=== PATIENT | male | born 1980 | race Caucasian/White ===

== ENCOUNTER → 2019-01-01 | Outpatient (CLI) | payer OTHER ==
--- NOTE | 2019-01-01 16:22 | XR ---
Right shoulder HISTORY: Chronic shoulder pain, remote trauma 3 views of the right shoulder Bone mineralization, joint spaces and alignment are maintained. Right lung apex as visualized is unre markable. Distal acromion slightly downturned. IMPRESSION: No fracture or dislocation. Shoulder MRI may be of benefit.
== END | disposition home or self-care (01) ==
LOC: RADXRMAIN 14:32
PROVIDERS: ATTEND Physician Assistant
DX: M25.511 Pain in right shoulder (principal)

== ENCOUNTER 2019-01-14 14:42 | Emergency (ER) | payer OTHER ==
[2019-01-14 14:52] VITALS: BP 107/66; PULSE 96; RESP 16; TEMP 98.4
[2019-01-14] MEDS ORDERED: LIDOCAINE 1%-EPI 1:100,000 20 ML VIAL SQ STA (15:02)
[2019-01-14] MEDS ORDERED: CLINDAMYCIN 150 MG CAP PO STA (15:03)
--- NOTE | 2019-01-14 15:19 | ED ---
General Adult HPI - General Chief complaint: Dental/Oral Stated complaint: Dental pain Time Seen by Provider: 01/14/19 15:00 Source: patient Mode of arrival: ambulatory Limitations: no limitations - History of Present Illness Initial comments: Dictation was produced using [employer] dictation software. please excuse any grammatical, word or spelling errors. Chief Complaint: 38yo male with no significant past medical history presents with dental pain. History of Present Illness: Patient is a 38-year-old male with chief complaint of dental pain. Patient has been having right mandibular dental pain for approximately 2-3 days. He has been without insurance however recently he was approved for insurance and will schedule dental appointment. Patient states he was not able to make it today. He had to leave work to come to the emergency department for this. Denies any constitutional symptoms. He does report some swelling around the right lower face. The ROS documented in this emergency department record has been reviewed and confirmed by me. Those systems with pertinent positive or negative responses have been documented in the HPI. All other systems are other negative and/or noncontributory. PHYSICAL EXAM: General Impression: Alert and oriented x3, not in acute distress HEENT: Normocephalic atraumatic, extra-ocular movements intact, pupils equal and reactive to light bilaterally, mucous membranes moist. Oral exam: Her dentition, gingival abscess to the right lower mandibular teeth adjacent to the molars. Cardiovascular: Heart regular rate and rhythm, S1&S2 audible, no murmurs, rubs or gallops Chest: Lungs clear to auscultation bilaterally, no rhonchi, no wheeze, no rales Abdomen: Bowel sounds present, abdomen soft, non-tender, non-distended, no organomegaly Musculoskeletal: Pulses present and equal in all extremities, no peripheral edema Motor: no focal deficits noted Neurological: CN II-XII grossly intact, no focal motor or sensory deficits noted Skin: Intact with no visualized rashes Psych: Normal affect and mood ED course: 38yo male presents with dental pain. Physical exam shows gingival abscess. Patient given 450 mg of clindamycin orally. Vital signs upon arrival are within acceptable limits. I&D of gingival abscess was performed with approximately 1/2 mL of purulent drainage. Patient tolerated procedure well. Patient given prescription for clindamycin. Patient does have a dentist to follow-up with. Patient given prescription for clindamycin. He states that he is ALLERGIC to penicillin. Patient understandable agreeable to plan. - Related Data Previous Rx's Medication Instructions Recorded Clindamycin HCl 450 mg PO Q8H #30 cap 01/14/19 Allergies Allergy/AdvReac Type Severity Reaction Status Date / Time No Known Allergies Allergy Verified 01/14/19 14:52 Review of Systems ROS Statement: Those systems with pertinent positive or pertinent negative responses have been documented in the HPI. ROS Other: All systems not noted in ROS Statement are negative. Past Medical History Past Medical History: No Reported History History of Any Multi-Drug Resistant Organisms: None Reported Past Surgical History: No Surgical Hx Reported Past Psychological History: No Psychological Hx Reported Smoking Status: Current every day smoker Past Alcohol Use History: None Reported Past Drug Use History: Marijuana General Exam Limitations: no limitations Course Vital Signs 01/14/19 14:51 Temperature 98.4 F Pulse Rate 96 Respiratory 16 Rate Blood Pressure 107/66 O2 Sat by Pulse 98 Oximetry Disposition Clinical Impression: Gingival abscess Disposition: HOME SELF-CARE Condition: Good Instructions (If sedation given, give patient instructions): Toothache (ED) Additional Instructions: follow up with dentist Prescriptions: Clindamycin HCl 450 mg PO Q8H #30 cap Is patient prescribed a controlled substance at d/c from ED?: No Referrals: Alfred Ferraro DO [Primary Care Provider] - 1-2 days Time of Disposition: 15:19
--- NOTE | 2019-01-14 15:22 | ED ---
Disposition Clinical Impression: Gingival abscess Disposition: HOME SELF-CARE Condition: Good Instructions (If sedation given, give patient instructions): Toothache (ED) Additional Instructions: follow up with dentist Prescriptions: Clindamycin HCl 450 mg PO Q8H #30 cap Is patient prescribed a controlled substance at d/c from ED?: No Referrals: Alfred Ferraro DO [Primary Care Provider] - 1-2 days Procedures - Incision & Drainage Consent Obtained: verbal consent Site: oral Anesthetic Used: lidocaine 1%, with epi Amount (mLs): 2 Sterile Field Used?: No Scalpel Used: #11 Needle Aspiration Performed?: Yes I&D Drainage Obtained: Pus Culture Obtained?: No Patient Tolerated Procedure: well
== END 2019-01-14 15:41 | disposition home or self-care (01) ==
LOC: EC 14:42
DX: K05.219 Aggressive periodontitis, localized, unspecified severity (principal); F17.200 Nicotine dependence, unspecified, uncomplicated; Z88.0 Allergy status to penicillin
CPT/HCPCS: 41800; 99282

== ENCOUNTER 2021-08-19 07:05 | Emergency (ER) | payer OTHER ==
[2021-08-19 07:15] VITALS: BP 124/84; PULSE 78; RESP 18; TEMP 99
[2021-08-19] MEDS ORDERED: methylPREDNISolone SOD SUCCI 125 MG/2 ML VIAL IM ONE (07:37)
[2021-08-19] MEDS ORDERED: CEPHALEXIN 500MG STARTER PACK 4 CAP BTL PO STA (07:38)
[2021-08-19] MEDS ORDERED: hydrOXYzine HCL 25 MG TAB PO STA (07:40)
--- NOTE | 2021-08-19 07:59 | ED ---
General Adult HPI - General Chief complaint: Allergic Reaction Stated complaint: Rash Time Seen by Provider: 08/19/21 07:26 Source: patient, RN notes reviewed Mode of arrival: ambulatory - History of Present Illness Initial comments: 40-year-old male presents to the emergency room for a chief complaint of poison vandana. Patient states he was in the [employer] for his dad 2 days ago. States yesterday he developed a rash. Today he woke up it was everywhere. States it is on his arms and torso and face. States his eye is swollen and it is itchy. Patient denies any swelling of the lips tongue or throat. Denies shortness of breath. Patient states he has had this several times before and he needs steroids.Patient has no other complaints at this time including shortness of breath, chest pain, abdominal pain, nausea or vomiting, headache, or visual changes. - Related Data Previous Rx's Medication Instructions Recorded Clindamycin HCl 450 mg PO Q8H #30 cap 01/14/19 predniSONE 0 mg PO DIRECTED #80 tab 08/19/21 Allergies Allergy/AdvReac Type Severity Reaction Status Date / Time Penicillins AdvReac Unknown Verified 08/19/21 07:15 Childhood Review of Systems ROS Statement: Those systems with pertinent positive or pertinent negative responses have been documented in the HPI. ROS Other: All systems not noted in ROS Statement are negative. Past Medical History Past Medical History: No Reported History History of Any Multi-Drug Resistant Organisms: None Reported Past Surgical History: No Surgical Hx Reported Past Psychological History: No Psychological Hx Reported Smoking Status: Current every day smoker Past Alcohol Use History: None Reported Past Drug Use History: Marijuana General Exam General appearance: alert, in no apparent distress Head exam: Present: atraumatic Eye exam: Present: normal appearance, PERRL, EOMI, periorbital swelling (Erythematous left sided periorbital erythema and edema with small vesicles). Absent: scleral icterus, conjunctival injection ENT exam: Present: normal exam, normal oropharynx (No swelling lips tongue or throat), mucous membranes moist, normal external ear exam Neck exam: Present: normal inspection, full ROM. Absent: tenderness Respiratory exam: Present: normal lung sounds bilaterally. Absent: respiratory distress, wheezes Cardiovascular Exam: Present: regular rate, normal rhythm, normal heart sounds GI/Abdominal exam: Present: soft, normal bowel sounds. Absent: distended, tenderness Skin exam: Present: rash (Erythematous macular rash noted to the arms and torso as well as face) Course Vital Signs 08/19/21 07:11 Temperature 99.0 F Pulse Rate 78 Respiratory 18 Rate Blood Pressure 124/84 O2 Sat by Pulse 97 Oximetry Medical Decision Making - Medical Decision Making Patient given IM steroids here. Will be started on by mouth taper for 21 days given the possibility of rebound rash for shorter course. We will also try Atarax instead of Benadryl. We will start him on antibiotics given erythema of the left periorbital area. I suspect this is related to poison vandana but out of an abundance of precaution he will be started on antibiotics. He will follow up with primary care. Disposition Clinical Impression: Contact dermatitis Disposition: HOME SELF-CARE Condition: Good Instructions (If sedation given, give patient instructions): Poison Vandana (ED) Additional Instructions: Take medications as directed. Try Atarax instead of Benadryl. If it is not helping as much which back to Benadryl. Follow up with primary care. You can follow up with dermatology for persisting case. Return to the emergency room for any worsening symptoms. Prescriptions: predniSONE 0 mg PO DIRECTED #80 tab Is patient prescribed a controlled substance at d/c from ED?: No Referrals: Cynthia Salmeron MD [STAFF PHYSICIAN] - 1-2 days Lillie Pandey MD [STAFF PHYSICIAN] - 1-2 days Time of Disposition: 07:53
== END 2021-08-19 08:12 | disposition home or self-care (01) ==
LOC: EC 07:05
DX: L25.9 Unspecified contact dermatitis, unspecified cause (principal); F17.200 Nicotine dependence, unspecified, uncomplicated; F12.90 Cannabis use, unspecified, uncomplicated
CPT/HCPCS: 99282; 96372; J2930

== ENCOUNTER 2021-08-27 06:49 | Emergency (ER) | payer OTHER ==
[2021-08-27 07:01] VITALS: RESP 18
[2021-08-27] MEDS ORDERED: SODIUM CHLORIDE 0.9% 2,000 ML IV STA (07:08)
[2021-08-27] MEDS ORDERED: KETOROLAC 15 MG/ML 1 ML VIAL IVP STA (07:08)
[2021-08-27] MEDS ORDERED: diphenhydrAMINE 50 MG/ML 1 ML VIAL IVP STA (07:08)
[2021-08-27] MEDS ORDERED: METOCLOPRAMIDE 5 MG/ML 2 ML VIAL IVP STA (07:08)
[2021-08-27 07:49] LABS: Basophils # (A) 0.1 k/uL (0-0.2); Basophils % (A) 0 %; Eosinophils # (A) 0.2 k/uL (0-0.7); Eosinophils % (A) 1 %; HCT 46.7 % (39.0-53.0); HGB 16.2 gm/dL (13.0-17.5); Lymphocytes # (A) 1.3 k/uL (1.0-4.8); Lymphocytes % (A) 9 %; MCHC 34.7 g/dL (31.0-37.0); MCV 95.2 fL (80.0-100.0); Mean Platelet Volume 6.6; Monocytes # (A) 0.6 k/uL (0-1.0); Monocytes % (A) 4 %; Neutrophils # (A) 13.2 k/uL (1.3-7.7); Neutrophils % (A) 85 %; Platelet Count 302 k/uL (150-450); RDW 11.9 % (11.5-15.5); WBC 15.5 k/uL (3.8-10.6)
--- NOTE | 2021-08-27 07:56 | ED ---
General Adult HPI - General Chief complaint: Nausea/Vomiting/Diarrhea Stated complaint: Vomiting, nausea Time Seen by Provider: 08/27/21 07:02 Source: patient, RN notes reviewed Mode of arrival: ambulatory Limitations: no limitations - History of Present Illness Initial comments: This a 40-year-old male presents emergency Department with chief complaint of nausea vomiting. Patient states she's been vomiting throughout the night. Patient went bodyaches, headache. Patient has no cough or cold like symptoms denies any blurred vision, neck pain, neck stiffness, no fever or chills. Patient denies any known sick contacts. No dysuria no hematuria he states of vomiting was first symptoms started with. - Related Data Previous Rx's Medication Instructions Recorded Clindamycin HCl 450 mg PO Q8H #30 cap 01/14/19 hydrOXYzine HCL [Atarax] 25 mg PO QID #20 tab 08/19/21 predniSONE 0 mg PO DIRECTED #80 tab 08/19/21 Ondansetron Odt [Zofran Odt] 4 mg PO Q8HR PRN #10 tab 08/27/21 Allergies Allergy/AdvReac Type Severity Reaction Status Date / Time Penicillins AdvReac Unknown Verified 08/27/21 07:01 Childhood Review of Systems ROS Statement: Those systems with pertinent positive or pertinent negative responses have been documented in the HPI. ROS Other: All systems not noted in ROS Statement are negative. Past Medical History Past Medical History: No Reported History History of Any Multi-Drug Resistant Organisms: None Reported Past Surgical History: No Surgical Hx Reported Past Psychological History: No Psychological Hx Reported Smoking Status: Current every day smoker Past Alcohol Use History: None Reported Past Drug Use History: Marijuana General Exam Limitations: no limitations General appearance: alert, in no apparent distress Head exam: Present: atraumatic, normocephalic, normal inspection Eye exam: Present: normal appearance, PERRL, EOMI. Absent: scleral icterus, conjunctival injection, periorbital swelling ENT exam: Present: normal exam, normal oropharynx, mucous membranes moist Neck exam: Present: normal inspection, full ROM. Absent: tenderness, meningismus, lymphadenopathy Respiratory exam: Present: normal lung sounds bilaterally. Absent: respiratory distress, wheezes, rales, rhonchi, stridor Cardiovascular Exam: Present: regular rate, normal rhythm, normal heart sounds. Absent: systolic murmur, diastolic murmur, rubs, gallop, clicks GI/Abdominal exam: Present: soft, tenderness (Mild epigastric), normal bowel sounds. Absent: distended, guarding, rebound, rigid Back exam: Absent: CVA tenderness (R), CVA tenderness (L) Neurological exam: Present: alert, oriented X3 Course Vital Signs 08/27/21 08/27/21 06:58 09:27 Temperature 99 F 98.8 F Pulse Rate 86 76 Respiratory 18 18 Rate Blood Pressure 123/86 128/80 O2 Sat by Pulse 100 98 Oximetry Medical Decision Making - Medical Decision Making 40-year-old presented for nausea vomiting. Patient was well hydrated, given antiemetics. Patient is essentially unremarkable. Did complain of a headache initially did not resolve CT is obtained which is negative patient states his headache is completely resolved now he has no neck pain or neck stiffness. He complains of some mild residual body aches. Patient will be discharged to his return from for discussed. - Lab Data Result diagrams: 08/27/21 07:19 08/27/21 07:19 Lab Results 08/27/21 08/27/21 08/27/21 Range/Units 07:19 07:19 07:19 WBC 15.5 H (3.8-10.6) k/uL RBC 4.90 (4.30-5.90) m/uL Hgb 16.2 (13.0-17.5) gm/dL Hct 46.7 (39.0-53.0) % MCV 95.2 (80.0-100.0) fL MCH 33.0 (25.0-35.0) pg MCHC 34.7 (31.0-37.0) g/dL RDW 11.9 (11.5-15.5) % Plt Count 302 (150-450) k/uL MPV 6.6 Neutrophils % 85 % Lymphocytes % 9 % Monocytes % 4 % Eosinophils % 1 % Basophils % 0 % Neutrophils # 13.2 H (1.3-7.7) k/uL Lymphocytes # 1.3 (1.0-4.8) k/uL Monocytes # 0.6 (0-1.0) k/uL Eosinophils # 0.2 (0-0.7) k/uL Basophils # 0.1 (0-0.2) k/uL Sodium 137 (137-145) mmol/L Potassium 4.3 (3.5-5.1) mmol/L Chloride 102 (98-107) mmol/L Carbon Dioxide 26 (22-30) mmol/L Anion Gap 9 mmol/L BUN 15 (9-20) mg/dL Creatinine 0.82 (0.66-1.25) mg/dL Est GFR (CKD-EPI)AfAm >90 (>60 ml/min/1.73 sqM) Est GFR (CKD-EPI)NonAf >90 (>60 ml/min/1.73 sqM) Glucose 127 H (74-99) mg/dL Calcium 10.0 (8.4-10.2) mg/dL Total Bilirubin 0.6 (0.2-1.3) mg/dL AST 21 (17-59) U/L ALT 27 (4-49) U/L Alkaline Phosphatase 64 (38-126) U/L Total Protein 7.6 (6.3-8.2) g/dL Albumin 4.4 (3.5-5.0) g/dL Amylase 67 (30-110) U/L Lipase 91 (23-300) U/L Urine Color Yellow Urine Appearance Cloudy (Clear) Urine pH 8.0 (5.0-8.0) Ur Specific [place] 1.021 (1.001-1.035) Urine Protein Trace H (Negative) Urine Glucose (UA) Negative (Negative) Urine Ketones Negative (Negative) Urine Blood Negative (Negative) Urine Nitrite Negative (Negative) Urine Bilirubin Negative (Negative) Urine Urobilinogen <2.0 (<2.0) mg/dL Ur Leukocyte Esterase Negative (Negative) Urine RBC <1 (0-5) /hpf Amorphous Sediment Rare H (None) /hpf Urine Bacteria Rare H (None) /hpf Urine Mucus Rare H (None) /hpf Coronavirus (PCR) (Not Detectd) 08/27/21 Range/Units 07:19 WBC (3.8-10.6) k/uL RBC (4.30-5.90) m/uL Hgb (13.0-17.5) gm/dL Hct (39.0-53.0) % MCV (80.0-100.0) fL MCH (25.0-35.0) pg MCHC (31.0-37.0) g/dL RDW (11.5-15.5) % Plt Count (150-450) k/uL MPV Neutrophils % % Lymphocytes % % Monocytes % % Eosinophils % % Basophils % % Neutrophils # (1.3-7.7) k/uL Lymphocytes # (1.0-4.8) k/uL Monocytes # (0-1.0) k/uL Eosinophils # (0-0.7) k/uL Basophils # (0-0.2) k/uL Sodium (137-145) mmol/L Potassium (3.5-5.1) mmol/L Chloride (98-107) mmol/L Carbon Dioxide (22-30) mmol/L Anion Gap mmol/L BUN (9-20) mg/dL Creatinine (0.66-1.25) mg/dL Est GFR (CKD-EPI)AfAm (>60 ml/min/1.73 sqM) Est GFR (CKD-EPI)NonAf (>60 ml/min/1.73 sqM) Glucose (74-99) mg/dL Calcium (8.4-10.2) mg/dL Total Bilirubin (0.2-1.3) mg/dL AST (17-59) U/L ALT (4-49) U/L Alkaline Phosphatase (38-126) U/L Total Protein (6.3-8.2) g/dL Albumin (3.5-5.0) g/dL Amylase (30-110) U/L Lipase (23-300) U/L Urine Color Urine Appearance (Clear) Urine pH (5.0-8.0) Ur Specific [place] (1.001-1.035) Urine Protein (Negative) Urine Glucose (UA) (Negative) Urine Ketones (Negative) Urine Blood (Negative) Urine Nitrite (Negative) Urine Bilirubin (Negative) Urine Urobilinogen (<2.0) mg/dL Ur Leukocyte Esterase (Negative) Urine RBC (0-5) /hpf Amorphous Sediment (None) /hpf Urine Bacteria (None) /hpf Urine Mucus (None) /hpf Coronavirus (PCR) Not Detected (Not Detectd) Disposition Clinical Impression: Gastroenteritis Disposition: HOME SELF-CARE Condition: Stable Instructions (If sedation given, give patient instructions): Acute Nausea and Vomiting (ED) Additional Instructions: Please return to the Emergency Department if symptoms worsen or any other concerns. Prescriptions: Ondansetron Odt [Zofran Odt] 4 mg PO Q8HR PRN #10 tab PRN Reason: Nausea Is patient prescribed a controlled substance at d/c from ED?: No Referrals: None,Stated [Primary Care Provider] - 1-2 days Time of Disposition: 11:24
[2021-08-27 07:58] LABS: ALT 27 U/L (4-49); AST 21 U/L (17-59); African American GFR (CKD) >90 (>60 ml/min/1.73 sqM); Albumin 4.4 g/dL (3.5-5.0); Alkaline Phosphatase 64 U/L (38-126); Amylase 67 U/L (30-110); Anion Gap 9 mmol/L; Blood Urea Nitrogen 15 mg/dL (9-20); Carbon Dioxide 26 mmol/L (22-30); Chloride 102 mmol/L (98-107); Glucose 127 mg/dL (74-99); Lipase 91 U/L (23-300); Non-African American GFR(CKD) >90 (>60 ml/min/1.73 sqM); Potassium 4.3 mmol/L (3.5-5.1); Sodium 137 mmol/L (137-145); Total Bilirubin 0.6 mg/dL (0.2-1.3); Total Protein 7.6 g/dL (6.3-8.2)
[2021-08-27] MEDS ORDERED: HYDROmorphone 0.5 MG/0.5 ML SYRINGE IVP STA (09:06)
[2021-08-27] MEDS ORDERED: ONDANSETRON 4 MG/2 ML VIAL IVP STA (09:06)
[2021-08-27 09:29] VITALS: TEMP 98.8
--- NOTE | 2021-08-27 09:41 | CT ---
EXAMINATION TYPE: CT brain wo con DATE OF EXAM: 08/27/2021 COMPARISON: None HISTORY: Severe headache CT DLP. Automated Exposure Control for Dose Reduction was Utilized. TECHNIQUE: CT scan of the head is performed without contrast. FINDINGS: There is no acute intracranial hemorrhage, mass effect, or midline shift identified. The ventricles and sulci are within normal limits in size. The globes are intact and the visualized sin uses are clear. IMPRESSION: No acute intracranial hemorrhage, mass effect, or midline shift is seen.
[2021-08-27] MEDS ORDERED: SODIUM CHLORIDE 0.9% 1,000 ML IV ONE (10:10)
[2021-08-27] MEDS ORDERED: DIAZEPAM 5 MG/ML 2 ML INJ IVP STA (10:10)
[2021-08-27 11:14] LABS: Amorphous Sediment,Urine Rare /hpf; Appearance,Urine Cloudy (Clear); Bacteria,Urine Rare /hpf; Bilirubin,Urine Negative (Negative); Blood,Urine Negative (Negative); Color,Urine Yellow; Glucose,Urine (UA) Negative (Negative); Ketones,Urine Negative (Negative); Leukocyte Esterase,Urine Negative (Negative); Mucus,Urine Rare /hpf; Nitrite,Urine Negative (Negative); Protein,Urine Trace (Negative); RBC,Urine <1 /hpf (0-5); Specific Gravity,Urine 1.021 (1.001-1.035); Urobilinogen,Urine <2.0 mg/dL (<2.0)
[2021-08-27 11:52] VITALS: BP 132/83; PULSE 87
== END 2021-08-27 11:55 | disposition home or self-care (01) ==
LOC: EC 06:49
DX: K52.9 Noninfective gastroenteritis and colitis, unspecified (principal); F17.200 Nicotine dependence, unspecified, uncomplicated; F12.90 Cannabis use, unspecified, uncomplicated; Z20.822 Contact with and (suspected) exposure to COVID-19; Z88.0 Allergy status to penicillin
CPT/HCPCS: 99284; 96374; 96375 ×5; 96361 ×2; 36415; 80053; 82150; 83690; 85025; 81001; 87635; 70450; J1200; J2765; J3360; J2405; J1885; J1170

== ENCOUNTER 2021-12-05 20:01 | Emergency (ER) | payer OTHER ==
[2021-12-05 20:13] VITALS: BP 115/70; PULSE 81; RESP 18; TEMP 97.3
[2021-12-05] MEDS ORDERED: ACETAMINOPHEN TAB 500 MG TAB PO STA (22:42)
[2021-12-05] MEDS ORDERED: IBUPROFEN 400 MG TAB PO STA (22:42)
--- NOTE | 2021-12-05 22:52 | ED ---
ENT HPI - General Chief complaint: ENT Stated complaint: ear pain Time Seen by Provider: 12/05/21 22:28 Source: patient, RN notes reviewed Mode of arrival: ambulatory Limitations: no limitations - History of Present Illness Initial comments: Patient presents to the emergency complaining of left ear pain which lasted for a few hours. He also states that his right ear is hurting a bit. States for the last several days he has had somewhat of an upper respiratory infection with a runny nose, mouth sore throat, mild cough. The patient is not vaccinated against COVID-19. He denies any chest pain shortness of breath. No productive cough. No fever. Patient is a cigarette smoker. No headache, no fever or chills, no changes in vision or hearing, no difficulty with speech, no neck pain, no chest pain or shortness of breath, no abdominal pain, no nausea or vomiting, no changes in urination or bowel movements, no numbness or tingling, no extremity pain, no skin rashes or lesions. - Related Data Previous Rx's Medication Instructions Recorded Clindamycin HCl 450 mg PO Q8H #30 cap 01/14/19 hydrOXYzine HCL [Atarax] 25 mg PO QID #20 tab 08/19/21 predniSONE 0 mg PO DIRECTED #80 tab 08/19/21 Ibuprofen [Motrin] 600 mg PO Q8HR PRN #20 tab 08/27/21 Ondansetron Odt [Zofran Odt] 4 mg PO Q8HR PRN #10 tab 08/27/21 Acetaminophen [Tylenol] 500 mg PO Q4-6H PRN #24 tab 12/05/21 Ibuprofen [Motrin] 600 mg PO Q8HR PRN #30 tab 12/05/21 Allergies Allergy/AdvReac Type Severity Reaction Status Date / Time Penicillins AdvReac Unknown Verified 12/05/21 20:13 Childhood Review of Systems ROS Statement: Those systems with pertinent positive or pertinent negative responses have been documented in the HPI. ROS Other: All systems not noted in ROS Statement are negative. Past Medical History Past Medical History: No Reported History History of Any Multi-Drug Resistant Organisms: None Reported Past Surgical History: No Surgical Hx Reported Past Psychological History: No Psychological Hx Reported Smoking Status: Current every day smoker Past Alcohol Use History: None Reported Past Drug Use History: Marijuana General Exam Limitations: no limitations General appearance: alert, in no apparent distress Head exam: Present: atraumatic, normocephalic, normal inspection Eye exam: Present: normal appearance, PERRL, EOMI. Absent: scleral icterus, conjunctival injection, periorbital swelling ENT exam: Present: normal exam, normal oropharynx, mucous membranes dry, mucous membranes moist, normal external ear exam, other (TMs show a good light reflex. Clear. No evidence of effusion. Minimal injection noted bilaterally however this is just hyperemic with blood vessels. There may be minimal retraction bilaterally as well.) Neck exam: Present: normal inspection. Absent: tenderness, meningismus, lymphadenopathy Respiratory exam: Present: normal lung sounds bilaterally. Absent: respiratory distress, wheezes, rales, rhonchi, stridor Cardiovascular Exam: Present: regular rate, normal rhythm, normal heart sounds. Absent: systolic murmur, diastolic murmur, rubs, gallop, clicks GI/Abdominal exam: Present: soft, normal bowel sounds. Absent: distended, tenderness, guarding, rebound, rigid Extremities exam: Present: normal inspection, full ROM, normal capillary refill. Absent: tenderness, pedal edema, joint swelling, calf tenderness Back exam: Present: normal inspection Neurological exam: Present: alert, oriented X3, CN II-XII intact Psychiatric exam: Present: normal affect, normal mood Skin exam: Present: warm, dry, intact, normal color. Absent: rash Course Vital Signs 12/05/21 20:11 Temperature 97.3 F L Pulse Rate 81 Respiratory 18 Rate Blood Pressure 115/70 O2 Sat by Pulse 98 Oximetry Medical Decision Making - Medical Decision Making Patient's presentation consistent with viral URI with subsequent inadequate eustachian tube function. No evidence of bacterial infection. All questions answered. Plan discussed. Conservative therapy. Patient reports understanding Patient was told to return to the ER for any signs or symptoms worsen. Told to return immediately if any other problems arise. All questions answered. Treatment plan discussed. Patient in agreement Disposition Clinical Impression: Eustachian tube dysfunction, Otalgia of both ears, Viral URI Disposition: HOME SELF-CARE Condition: Stable Instructions (If sedation given, give patient instructions): Upper Respiratory Infection (ED), Earache (ED) Additional Instructions: Follow-up with your regular physician as directed. Return to the ER immediately if any symptoms worsen, new symptoms arise, or any other problems develop. Equalize the pressure in your ears by ears by auto inflation 6-8 times per day as discussed. Prescriptions: Ibuprofen [Motrin] 600 mg PO Q8HR PRN #30 tab PRN Reason: Pain Acetaminophen [Tylenol] 500 mg PO Q4-6H PRN #24 tab PRN Reason: Pain Is patient prescribed a controlled substance at d/c from ED?: No Referrals: Mart Degroot MD [STAFF PHYSICIAN] - 12/08/21 Time of Disposition: 22:52
== END 2021-12-05 23:30 | disposition home or self-care (01) ==
LOC: EC 20:01
DX: H69.93 Unspecified Eustachian tube disorder, bilateral (principal); J06.9 Acute upper respiratory infection, unspecified; F17.200 Nicotine dependence, unspecified, uncomplicated; F12.90 Cannabis use, unspecified, uncomplicated; Z88.0 Allergy status to penicillin
CPT/HCPCS: 99283

== ENCOUNTER → 2022-09-21 | Outpatient (CLI) | payer OTHER ==
--- NOTE | 2022-09-22 12:36 | CT ---
EXAMINATION TYPE: CT abdomen pelvis w con CT DLP: 1821 mGycm, Automated exposure control for dose reduction was used. DATE OF EXAM: 09/21/2022 4:28 PM COMPARISON: CT abdomen pelvis most recent from 10/10/2012 CLINICAL INDICATION:Male, 41 years old with history of K52.9; ABD PAIN X 2 MONTHS TECHNIQUE: Axial CT of the abdomen and pelvis. Sagittal and coronal reformats were created on a [employer] workstation. Contrast used:100ML mL of Isovue 300 with IV Contrast, Oral contrast used: with Oral Contrast FINDINGS: LOWER CHEST: Lingula calcified granuloma. ABDOMEN LIVER: Diffusely hypoattenuating parenchyma. Hepatic cyst GALLBLADDER AND BILE DUCTS: Unremarkable. PANCREAS: Unremarkable. SPLEEN: Unremarkable. ADRENAL GLANDS: Unremarkable. KIDNEYS AND URETERS: No evidence of hydronephrosis or renal calculus. The ureters are unremarkable. Subcentimeter right probable renal cysts. PELVIS BLADDER: Unremarkable REPRODUCTIVE: Unremarkable. ABDOMEN & PELVIS STOMACH AND BOWEL: No evidence of bowel obstruction. Appendix is normal. There is submucosal fat depo sition the cecum and ascending colon. Scattered clonic diverticula present. The mucosal fat depositio n within the sigmoid colon and rectum. PERITONEUM: No evidence of pneumoperitoneum or free fluid. VASCULATURE: No evidence of aortic aneurysm. MUSCULOSKELETAL: No acute osseous abnormalities, multilevel disc degeneration changes most proximal a t L1 with Schmorl's node noted. LYMPH NODES: No gross evidence for lymphadenopathy. Nodular densities are seen in the retroperitoneal fat on the right are similar back to 2012 and likely benign. SOFT TISSUE/ABDOMINAL WALL: Fat-containing umbilical hernia. IMPRESSION: 1. No evidence for acute intra-abdominal process. 2. Colonic diverticulosis. 3. Hepatic steatosis.
== END | disposition home or self-care (01) ==
LOC: RADCTMAIN 14:50
PROVIDERS: ATTEND Family Medicine
DX: K76.0 Fatty (change of) liver, not elsewhere classified (principal); K52.9 Noninfective gastroenteritis and colitis, unspecified; K57.30 Diverticulosis of large intestine without perforation or abscess without bleeding; R19.4 Change in bowel habit
CPT/HCPCS: 74177; Q9967

== ENCOUNTER 2022-10-16 09:05 | Day surgery (SDC) | payer OTHER ==
[~2022-10-16 09:05] MED LIST: LACTATED RINGERS 1,000 ML IV SCH; LIDOCAINE 1% (10MG/ML) FOR IV START INTRADERMA PRN
[2022-10-16 09:36] VITALS: RESP 16; TEMP 97.2
[2022-10-16] MEDS ORDERED: PROPOFOL 10 MG/ML 20 ML VIAL IV ONE (10:16)
--- NOTE | 2022-10-16 10:31 | P.PCN ---
Date of Procedure: 10/16/22 Procedure(s) Performed: BRIEF HISTORY: Patient is a 41-year-old pleasant white male scheduled for an elective colonoscopy as a part of evaluation of positive cologuard/Screening for colon cancer PROCEDURE PERFORMED: Colonoscopy with biopsy. PREOPERATIVE DIAGNOSIS: Positive cologuard/Screening for colon. IV sedation per Anesthesia. PROCEDURE: After informed consent was obtained, the patient, was brought into the endoscopy unit. IV sedation was administered by Anesthesia under continuous monitoring. Digital rectal examination was normal. Initially the Olympus CF-160 flexible video colonoscope was then inserted in the rectum, gradually advanced into the cecum without any difficulty. Careful examination was performed as the scope was gradually being withdrawn. Ileocecal valve and the appendiceal orifice were visualized and appeared normal. Prep was excellent. There was a 3 mm polyp noted on the ileocecal valve that was removed by cold biopsy Mucosa of the cecum, ascending colon, transverse colon, descending colon, sigmoid colon, and rectum appeared normal. Retroflexion was performed in the rectum and no lesions were seen. The patient tolerated the procedure well. IMPRESSION: 3 mm polyp at the ileocecal valve status post cold biopsy Rest of the colon appeared normal RECOMMENDATIONS: Findings of this examination were discussed with the patient is well as his family. He was advised to follow with the biopsy results. If the biopsy reveals an adenoma he can have a repeat colonoscopy in 5 years.
[2022-10-16 10:51] VITALS: BP 109/73; PULSE 65
== END 2022-10-16 11:11 | disposition home or self-care (01) ==
LOC: ORWHC2ENDO 09:05
PROVIDERS: ATTEND Internal Medicine Gastroenterology
DX: D12.0 Benign neoplasm of cecum (principal); F17.200 Nicotine dependence, unspecified, uncomplicated; K21.9 Gastro-esophageal reflux disease without esophagitis; Z79.83 Long term (current) use of bisphosphonates; Z88.0 Allergy status to penicillin
CPT/HCPCS: 45380; J2704; 88305